=== PATIENT | female | born 1985 | race Caucasian/White ===

== ENCOUNTER → 2025-02-09 18:48 | Day surgery (SDC) | payer OTHER, SELFPAY ==
[2025-02-09] VITALS (8 sets, daily range): BP systolic 107–151; BP diastolic 56–92; PULSE 54–86; RESP 16–18; TEMP 36.7–36.8; O2SAT 97–100; BMI 26.2
--- NOTE | 2025-02-09 | PATH_ITS ---
[facility] Accession Number: [id number] No. of containers..01 Tissue . 01 Material submitted: . body - PELVIC HEMATOMA . 01 Diagnosis: PELVIC HEMATOMA: Blood clot with organizing thrombus and granulation type tissue. Rare giant cells present of undetermined significance. [facility] 02/16/2025 0916 Local . 01 Comment: This case is also reviewed by Dr. Tiffany Guerrero, who agrees with the interpretation. . 01 Electronically signed: . Cindy Lorenzo MD, Pathologist NPI- [id number] . 01 Gross description: . Received in formalin with two identifiers and pelvic hematoma, are multiple fragments of red-brown, presumed hemorrhagic material aggregating to 5.3 x 3.7 x 2.1 cm. No membranous or other soft tissue is grossly identified. [place] tissue is submitted in A1-A2. ([id number]) /MRV 02/10/2025 1440 Local . 01 Pathologist provided ICD-10: M79.81 . 01 CPT . 648529 Performed at: [address] [facility] [address], [place], [place] [id number] MD Chance Tolliver MD Phone: [phone]
--- NOTE | 2025-02-09 09:17 | PC.NURSE ---
bleeding after urination @0917 said it looked like Spotting.
--- NOTE | 2025-02-09 11:35 | ED.FEMALEGU ---
HPI - Female Genitourinary General Chief complaint: Urogenital-Female Stated complaint: Ovarian cysts and in pain Time Seen by Provider: 02/09/25 11:28 Source: patient Mode of arrival: Ambulatory History of Present Illness HPI Narrative: 39-year-old female presents to the ED with bilateral pelvic pain for the last 4 weeks. Patient underwent IVF, was diagnosed with a ectopic and underwent a bilateral salpingectomy on 01/13/2025. Patient states that since then, she has had bilateral pelvic pain. Pain is worse with movement and walking. Patient was seen at the [facility] ED on 02/05/[address] scan showed bilateral ovarian cysts, and a likely hematoma in the right adnexa. Patient was discharged home with pain medications. Patient was asked to finish her antibiotics that she was already taking. Patient asked to follow-up with OB. In the meanwhile, patient's pain has worsened. Patient also started having vaginal bleeding while in the ED. patient endorses chills. No chest pain, shortness of breath, fever, nausea, vomiting, lightheadedness, dizziness, syncope. Related Data Allergies Allergy/AdvReac Type Severity Reaction Status Date / Time vancomycin Allergy Intermediate Verified 02/09/25 13:52 latex Allergy Verified 02/09/25 09:24 Latex, Natural Rubber Allergy Verified 02/09/25 09:24 nitrile Allergy Verified 02/09/25 09:24 Review of Systems Constitutional Constitutional: Denies chills, Denies fatigue, Denies fever(s), Denies frequent falls, Denies lethargy and Denies weakness Eyes Eyes: Denies change in vision, Denies eye discharge, Denies irritation and Denies loss of vision ENT Ears, Nose, Mouth, and Throat: Denies change in voice, Denies dizziness, Denies neck pain, Denies sore throat and Denies throat swelling Cardiovascular Cardiovascular: Denies chest pain, Denies irregular heart rhythm, Denies lightheadedness, Denies palpitations, Denies dyspnea, Denies dyspnea on exertion and Denies orthopnea Respiratory Respiratory: Denies cough, Denies dyspnea, Denies dyspnea on exertion and Denies wheezing Gastrointestinal Gastrointestinal: Denies abdominal pain, Denies change in bowel habits, Denies diarrhea, Denies nausea and Denies vomiting Genitourinary Genitourinary: Reports abnormal vaginal bleeding and Reports pelvic pain Musculoskeletal Musculoskeletal: Denies neck pain and Denies numbness Integumentary/Breasts Skin/Breast: Denies pruritus, Denies erythema, Denies rash and Denies wounds Neurologic Neurologic: Denies behavioral changes, Denies confusion, Denies dizziness, Denies frequent falls, Denies loss of vision, Denies numbness and Denies weakness Psychiatric Psychiatric: Denies anxiety, Denies behavioral changes, Denies confusion, Denies depression, Denies homicidal ideation and Denies suicidal ideation Endocrine Endocrine: Denies fatigue, Denies flushing and Denies palpitations Hematologic/Lymphatic Hematologic/Lymphatic: Denies easy bruising Allergic/Immunologic Allergic/Immunologic: Denies urticaria, Denies throat swelling and Denies wheezing Exam Narrative Exam Narrative: Const General:?cooperative, healthy appearing and comfortable [facility] Head:?normal to inspection Ears:?hearing grossly normal bilaterally Nose:?external nose normal Face and sinus:?normal facial exam and sinuses nontender Mouth:?oral mucosae normal Throat:?posterior oropharynx normal Eyes General:?appearance normal, both eyes and all related structures Neck Neck:?normal visual inspection and no lymphadenopathy noted Resp Effort & Inspection:?normal respiratory effort Auscultation:?clear to auscultation bilaterally Cardio Rate:?regular rate Rhythm:?regular rhythm GI/ Pelvic tenderness bilaterally. Abdomen is soft, nondistended. exam deferred Neuro General:?patient alert, patient awake and patient oriented x3 Initial Vital Signs Initial Vital Signs: Vital Signs Temperature 98.3 F 02/09/25 09:03 Pulse Rate 54 L 02/09/25 09:03 Respiratory Rate 18 02/09/25 09:03 Blood Pressure 151/92 H 02/09/25 09:03 Pulse Oximetry 100 02/09/25 09:03 Oxygen Delivery Method Room Air 02/09/25 09:03 Course Orders Ordered: ED Orders 02/09/25 11:46 US pelvic complete Stat 02/09/25 12:00 CBC Auto Diff [Complete Blood Count AUTO DIFF] Stat CMP [Comprehensive Metabolic Panel] Stat HCG Quantitative /Beta subunit Stat Lactate (Lactic Acid) Stat Lipase Stat PT [Prothrombin Time INR] Stat PTT [PTT Partial Thromboplastin Toan] Stat 02/09/25 12:43 Blood Culture Stat 02/09/25 12:47 Urine Microscopic Stat 02/09/25 13:03 MR pelvis wo/w con Stat Lactated Ringer's (Lactated Ringers) 1,000 mls @ 42 mls/hr IV CONT NAREN Discontinued Medications Lorazepam (Lorazepam 1 Mg Tablet) 1 mg PO NOW ONE Stop: 02/09/25 14:01 Last Admin: 02/09/25 14:00 Dose: 1 mg Documented By: GABRIELLE Vital Signs Vital signs: Vital Signs - 8 hr 02/09/25 12:14 02/09/25 16:50 Pulse Rate 68 75 Respiratory Rate 16 16 Blood Pressure 119/56 L 107/66 Pulse Oximetry 100 99 Oxygen Delivery Method Room Air Room Air MDM - Female Genitourinary Lab Data 02/09/25 12:00 02/09/25 12:00 Labs: Lab Results 02/09/25 02/09/25 Range/Units 12:00 12:47 WBC 5.5 (4.5-11.0) X10^3/uL RBC 3.80 L (4.0-5.2) X10^6/uL Hgb 11.0 L (12.0-16.0) g/dL Hct 32.4 L (36-46) % MCV 85.5 (80-100) fL MCH 28.9 (26-34) PG MCHC 33.8 (30-36) % RDW 13.1 (11.6-14.8) % Plt Count 342 (150-400) X10^3/uL Neut % (Auto) 70.1 (50-75) % Lymph % (Auto) 21.4 L (25-40) % Valley % (Auto) 6.2 (3-14) % Eos % (Auto) 1.3 L (2-4) % Baso % (Auto) 1.0 (0-2) % Neut # (Auto) 3900 (1296-9295) /uL Lymph # (Auto) 1200 (7728-7368) /uL Valley # (Auto) 300 (0-900) /uL Eos # (Auto) 100 (0-450) /uL Baso # (Auto) 100 (0-100) /uL PT 11.1 (9.4-12.5) SECONDS INR 1.0 (0.9-1.3) APTT 29 (25.1-36.5) SECONDS Sodium 137 (137-145) mmol/L Potassium 4.1 (3.4-5.1) mmol/L Chloride 103 (98-107) mmol/L Carbon Dioxide 27 (22-32) mmol/L BUN 6 L (7-17) mg/dL Creatinine 0.64 (0.52-1.04) mg/dL Estimated GFR > 60 (>60) mL/min BUN/Creatinine Ratio 9.4 (6-22) Glucose 87 (70-99) mg/dL Lactate 1.1 (0.7-2.1) mmol/L Calcium 9.1 (8.4-10.2) mg/dL Total Bilirubin 0.4 (0.2-1.3) mg/dL AST 41 H (14-36) IU/L ALT 26 (<35) IU/L Alkaline Phosphatase 101 (38-126) U/L Total Protein 7.8 (6.3-8.2) g/dL Albumin 4.5 (3.5-5.0) g/dL Globulin 3.3 (1.7-4.1) g/dL Albumin/Globulin Ratio 1.4 (1.0-2.8) Lipase 64 (23-300) U/L HCG, Quant 12.95 mIU/mL Urine RBC 10-30/hpf H (0-5/HPF) Urine WBC None seen (0-5/HPF) Ur Squamous Epith Cells None seen (0-5/HPF) Urine Bacteria None seen (None) Ur Culture Indicated? Cult not indicated Vol Urine Centrifuged 10ml (spun) Urine Dip Bedside Urine Glucose Negative Bedside Urine Bilirubin - Negative Bedside Urine Ketone - Negative Urine Specific Glen 1.01 Bedside Urine Occult Blood +++ Bedside Urine pH 6.0 Bedside Urine Protein - Negative Bedside Urine Urobilinogen - Negative Bedside Urine Nitrite - Negative Bedside Urine Leukocytes - Negative Esterase MDM Narrative Medical decision making narrative: 39-year-old female presents to the ED with bilateral pelvic pain for the last 4 weeks. Concern for hematoma versus other postsurgical complications versus ruptured ovarian cyst versus torsion versus sepsis versus other. Will obtain labs, UA, ultrasound pelvis. Patient NPO. Ultrasound shows no sonographic signs of ovarian torsion. Left ovarian septated cyst measuring 4.5 cm and simple cyst measuring 3.9 cm. Complex oval lesion in the right adnexa without internal vascularity measuring 5.6 cm is of uncertain etiology. Pelvic MRI recommended for further characterization. Labs within normal limits. UA without UTI. Pelvic MRI has been ordered. Pelvic MRI FINDINGS: IMPRESSION: Right adnexal lesion along the broad ligament measuring 4.0 x 3.2 cm. This contains T1 and mixed T2 signals, consistent with hemorrhagic products. Additional 2 foci of hemorrhagic products within the deep pelvis. Findings are likely a sequela of recent surgery, with small hematomas being at the top of the differential. Differential does include endometriomas. Ectopic is significantly less likely. Correlate with beta HCG. Right ovarian cyst with a thin internal septation measuring 6.8 x 4.5 cm. No evidence of ovarian torsion. OBGYN Dr. Maine Coley was consulted. She graciously agrees to take the patient to the OR for exploration. Discussed findings and disposition with patient. She is agreeable to the plan. Patient is admitted to surgery. Medical records reviewed: Yes Discharge Plan Departure Patient Disposition: Admitted to Surgery Clinical Impression: Adnexal mass
--- NOTE | 2025-02-09 11:46 | DI.US.S_ITS ---
PROCEDURE: US PELVIC COMPLETE INDICATIONS: pelvic pain, s/p bilateral salpingectomy, ectopic TECHNIQUE: Real-time scanning was performed of the pelvic organs, with image documentation. Additional endovaginal scanning was necessary due to incomplete visualization of the adnexal and endometrial structures by transabdominal scanning. Color and spectral Doppler evaluation of the ovaries was performed in the setting of pelvic pain. COMPARISON: None. FINDINGS: Uterus: Uterus is retroverted and normal in size at 5.8 x 3.9 x 5.5 cm. The myometrium is homogeneous. The endometrium measures 2.3 mm combined thickness. Ovaries: The right ovary measures 7.4 x 4.8 x 6.0 cm, with a calculated ovarian volume of 111 cc. The left ovary measures 3.0 x 4.9 x 1.7 cm, with a calculated ovarian volume of 12.9 cc. Septated cyst in the left ovary measures 3.7 x 4.5 x 3.8 cm. Additional 3.9 cm simple cyst is seen at the left ovary. A right ovarian simple cyst measures up to 1.9 cm. A complex hypoechoic avascular lesion is seen in the right adnexa measuring 5.6 x 3.1 x 4.5 cm. Normal arterial and venous Doppler flow are seen to each ovary. Other: No pathologic free abdominal or pelvic fluid. IMPRESSION: 1. No sonographic signs of ovarian torsion. 2. Left ovarian septated cyst measuring 4.5 cm and simple cyst measuring 3.9 cm. 3. Complex oval lesion in the right adnexa without internal vascularity measuring 5.6 cm is of uncertain etiology. Pelvic MRI could be performed for further characterization versus follow-up ultrasound. Approved by: Mustapha Ayala M.D. on 02/09/2025 at 12:58
[2025-02-09 12:11] LABS: Add Manual Diff / Slide Review NO; Hematocrit 32.4 % (36-46); Hemoglobin 11.0 g/dL (12.0-16.0); Lymphocytes Absolute Auto 1200 /uL (1100-4500); Mean Corpuscular HGB Conc 33.8 % (30-36); Mean Corpuscular Hemoglobin 28.9 PG (26-34); Mean Corpuscular Volume 85.5 fL (80-100); Platelet Count 342 X10^3/uL (150-400)
[2025-02-09 12:18] LABS: INR 1.0 (0.9-1.3); Prothrombin Time 11.1 SECONDS (9.4-12.5)
[2025-02-09 12:21] LABS: PTT Partial Thromboplastin Tim 29 SECONDS (25.1-36.5)
[2025-02-09 12:27] LABS: Alanine Aminotransferase 26 IU/L (<35); Albumin 4.5 g/dL (3.5-5.0); Albumin Globulin Ratio 1.4 (1.0-2.8); Alkaline Phosphatase 101 U/L (38-126); Blood Urea Nitrogen 6 mg/dL (7-17); Calcium 9.1 mg/dL (8.4-10.2); Carbon Dioxide 27 mmol/L (22-32); Chloride 103 mmol/L (98-107); Estimated Glomerular Filt Rate > 60 mL/min (>60); Globulin 3.3 g/dL (1.7-4.1); Glucose 87 mg/dL (70-99); HEMOLYSIS < 15 (0-50); Lactate (Lactic Acid) 1.1 mmol/L (0.7-2.1); Lipase 64 U/L (23-300); Potassium 4.1 mmol/L (3.4-5.1); Sodium 137 mmol/L (137-145); Total Protein 7.8 g/dL (6.3-8.2)
--- NOTE | 2025-02-09 13:03 | DI.MRI.S_ITS ---
PROCEDURE: MR PELVIS WO/W CON INDICATIONS: complex lesion in R adnexa TECHNIQUE: Coronal HASTE, sagittal breath-hold T2 FSE; axial T1 FSE with and without fat saturation through the pelvis. Optional long- and short-axis uterine nonbreath-hold T2 FSE through the uterus. Sagittal or axial dynamic VIBE during administration of contrast. Post-contrast axial or coronal VIBE/2-D FLASH with fat saturation from the iliac crests to the symphysis. Optional diffusion weighted imaging and ADC may be performed. COMPARISON: , , US PELVIC COMPLETE, 02/09/2025, 11:55. FINDINGS: Image quality: Excellent. Uterus: Uterus is normal in size. This is anteverted retroflexed. Endometrium is normal in thickness. Junctional zone is normal in thickness at 12 mm or less. Adnexa: There is a right ovarian cyst with a thin internal septation measuring approximately 6.8 x 4.5 cm. The ovarian stroma along the right periphery is non edematous. The left ovary has a normal size and appearance, with multiple peripheral follicles. This measures approximately 1.7 x 2.6 cm. Along the right broad ligament, there is a T1 hyperintense lesion with mild intermediate T2 signal along the periphery, and internal T2 hyperintense signal. This measures 4.0 x 3.2 cm. Additionally, in the deep pelvis, there are a couple of T1 hyperintense lesions measuring 1.9 x 1.9 cm and 0.2 x 0.9 cm (series 7, image 21). Urinary system: Bladder wall is normal in thickness. Distal ureters are non distended. Urethra appears normal in morphology. Nodes and vessels: No pelvic or inguinal adenopathy by size criteria. Iliac vessels are normal in size. Bowel and peritoneum: No pathologic free pelvic fluid. Inferior colon and small bowel loops are normal in caliber. Soft tissues: No inguinal hernias. No findings of pelvic floor incompetence in the absence of provocation. Bones: Marrow demonstrates normal overall signal. IMPRESSION: Right adnexal lesion along the broad ligament measuring 4.0 x 3.2 cm. This contains T1 and mixed T2 signals, consistent with hemorrhagic products. Additional 2 foci of hemorrhagic products within the deep pelvis. Findings are likely a sequela of recent surgery, with small hematomas being at the top of the differential. Differential does include endometriomas. Ectopic is significantly less likely. Correlate with beta HCG. Right ovarian cyst with a thin internal septation measuring 6.8 x 4.5 cm. No evidence of ovarian torsion. Dictated by: Billy Soto M.D. on 02/09/2025 at 15:26 Approved by: Billy Soto M.D. on 02/09/2025 at 15:36
[2025-02-09 13:23] LABS: Culture Indicated Urine Cult Not Indicated
[2025-02-09 14:17] LABS: HCG Quantitative /Beta subunit 12.95 mIU/mL
[2025-02-09] MEDS: LACTATED RINGERS 1,000 ML 42 ML IV (17:30)
--- NOTE | 2025-02-09 17:36 | P.HPOB_ITS ---
History of Present Illness History of Present Illness Reason for admission: pelvic pain Narrative: Bing Monroy is a 39 year old female 1 month s/p laparoscopic bilateral salpingectomy for tubal ectopic . She presented to the ER today for continued pain and feeling more fatigue. She has had off and on nausea and vomiting, and has generally been feeling worse over the last few weeks. She originally had surgery at [facility] on 01/13, then felt better in the week after, but then felt worse again. She has had multiple imaging studies that have showed adenexal cysts and possible pelvic hematoma. [facility] Medical History (Updated 02/09/25 @ 17:43 by Maine Coley DO) History of ectopic Surgical History (Updated 02/09/25 @ 17:41 by Maine Coley DO) H/O section History of bilateral salpingectomy (~12/2024) Social History Smoking Status: Never smoker Meds Home Medications and Allergies Allergies Allergy/AdvReac Type Severity Reaction Status Date / Time vancomycin Allergy Intermediate Verified 02/09/25 13:52 latex Allergy Verified 02/09/25 09:24 Latex, Natural Rubber Allergy Verified 02/09/25 09:24 nitrile Allergy Verified 02/09/25 09:24 Review of Systems Review of Systems ROS: Yes All systems reviewed with the patient and are negative except as otherwise documented Exam Vital Signs (past 8 hours): - 02/09/25 12:14 02/09/25 16:50 Pulse Rate 68 75 Respiratory Rate 16 16 Blood Pressure 119/56 L 107/66 Pulse Oximetry 100 99 Oxygen Delivery Method Room Air Room Air Oxygen Delivery Method Room Air Const General: healthy appearing, comfortable and No acute distress Resp Effort & Inspection: normal respiratory effort and able to speak in complete sentences GI Other: tender to palpation diffusely Skin Other: 3 laparoscopic incisions healing well Neuro Cognition: normal cognition Speech: speech normal Psych Mood: congruent mood Affect: normal affect Objective Imaging US - abdomen: Radiologist's impression: FINDINGS: Uterus: Uterus is retroverted and normal in size at 5.8 x 3.9 x 5.5 cm. The myometrium is homogeneous. The endometrium measures 2.3 mm combined thickness. Ovaries: The right ovary measures 7.4 x 4.8 x 6.0 cm, with a calculated ovarian volume of 111 cc. The left ovary measures 3.0 x 4.9 x 1.7 cm, with a calculated ovarian volume of 12.9 cc. Septated cyst in the left ovary measures 3.7 x 4.5 x 3.8 cm. Additional 3.9 cm simple cyst is seen at the left ovary. A right ovarian simple cyst measures up to 1.9 cm. A complex hypoechoic avascular lesion is seen in the right adnexa measuring 5.6 x 3.1 x 4.5 cm. Normal arterial and venous Doppler flow are seen to each ovary. Other: No pathologic free abdominal or pelvic fluid. IMPRESSION: 1. No sonographic signs of ovarian torsion. 2. Left ovarian septated cyst measuring 4.5 cm and simple cyst measuring 3.9 cm. 3. Complex oval lesion in the right adnexa without internal vascularity measuring 5.6 cm is of uncertain etiology. Pelvic MRI could be performed for further characterization versus follow-up ultrasound. Approved by: Mustapha Ayala M.D. on 02/09/2025 at 12:58 MRI - abdomen: Radiologist's impression: IMPRESSION: Right adnexal lesion along the broad ligament measuring 4.0 x 3.2 cm. This contains T1 and mixed T2 signals, consistent with hemorrhagic products. Additional 2 foci of hemorrhagic products within the deep pelvis. Findings are likely a sequela of recent surgery, with small hematomas being at the top of the differential. Differential does include endometriomas. Ectopic is significantly less likely. Correlate with beta HCG. Right ovarian cyst with a thin internal septation measuring 6.8 x 4.5 cm. No evidence of ovarian torsion. Dictated by: Billy Soto M.D. on 02/09/2025 at 15:26 Approved by: Billy Soto M.D. on 02/09/2025 at 15:36 Labs 02/09/25 12:00 02/09/25 12:00 Labs: Laboratory Results - last 24 hr 02/09/25 02/09/25 12:00 12:47 WBC 5.5 RBC 3.80 L Hgb 11.0 L Hct 32.4 L MCV 85.5 MCH 28.9 MCHC 33.8 RDW 13.1 Plt Count 342 Neut % (Auto) 70.1 Lymph % (Auto) 21.4 L [place] % (Auto) 6.2 Eos % (Auto) 1.3 L Baso % (Auto) 1.0 Neut # (Auto) 3900 Lymph # (Auto) 1200 [place] # (Auto) 300 Eos # (Auto) 100 Baso # (Auto) 100 PT 11.1 INR 1.0 APTT 29 Sodium 137 Potassium 4.1 Chloride 103 Carbon Dioxide 27 BUN 6 L Creatinine 0.64 Estimated GFR > 60 BUN/Creatinine Ratio 9.4 Glucose 87 Lactate 1.1 Calcium 9.1 Total Bilirubin 0.4 AST 41 H ALT 26 Alkaline Phosphatase 101 Total Protein 7.8 Albumin 4.5 Globulin 3.3 Albumin/Globulin Ratio 1.4 Lipase 64 HCG, Quant 12.95 Urine RBC 10-30/hpf H Urine WBC None seen Ur Squamous Epith Cells None seen Urine Bacteria None seen Ur Culture Indicated? Cult not indicated Vol Urine Centrifuged 10ml (spun) Assessment & Plan Assessment and plan (1) Adnexal mass: Status: Acute (2) History of ectopic : Status: Acute Assessment & Plan narrative: 39yo F with h/o laparoscopic bilateral salpingectomy 1 month ago, with persistent pain and imaging findings suggestive of pelvic hematoma and adnexal cysts. She was counseled regarding conservative management vs. surgical management, and given that her symptoms have continued to worsen, she desires to proceed with surgical management at this time. -plan for diagnostic laparoscopy with hematoma evacuation, possible ovarian cystectomy, possible oophorectomy -plan for same day procedure Surgery consent We discussed the risks/benefits/alternatives to the proposed procedure, to include but not limited to: -risk of bleeding, requiring medications, blood products, or other procedures as indicated -risk of infection, requiring prolonged hospital stay or other procedures -risk of injury to other structures, including bowel, bladder, blood vessels, nerves, etc. which may also require additional procedures -risk of adverse reaction to anesthesia or medications -risk of venous thromboembolism and associated sequelae -risk of rare complications such as cardiac arrest, or extremely rarely, Patient is aware of the risks, and desires to proceed with planned surgical procedure. Time-Based Coding :: [45min] spent with patient and on the chart (including review of chart, obtaining history, exam, reviewing outside data, placing orders, documenting exam and treatment plan, and counseling patient) on [02/09/25].
[2025-02-09] MEDS: BUPIVACAINE 0.25% (PF) VIAL 30 ML INJ (18:13)
--- NOTE | 2025-02-09 18:23 | SUR.OPER ---
Lithotomy on padded OR bed. Metz Pad Positioner under torso. Head on pillow, arms padded and tucked at sides. Legs secured in padded yellow fins stirrups.
--- NOTE | 2025-02-09 19:19 | P.OP_ITS ---
Operative Date/Time/Diagnoses Date of procedure: 02/09/25 Time of procedure: 18:00 Pre-op diagnosis: 1. Pelvic pain 2. Adnexal cyst 3. Pelvic hematoma Post-op diagnosis: same Procedure & Clinicians Procedure: Diagnostic laparoscopy Lysis of adhesions Pelvic hematoma evacuation Same procedure(s) as scheduled: Yes Indications: 39yo F presented to the ER with persistent pain, fatigue, and nausea approximately one month postop from laparoscopic bilateral salpingectomy for ectopic . Imaging findings showed enlarged ovarian cyst as well as pelvic hematomas, thus after counseling regarding conservative management with continued observation versus proceeding with surgical management, patient desired to proceed with surgical management. Surgeon: Maine oCley Click Yes if Unassisted: Yes Anesthesia Type: General Operative Notes Findings: Omental adhesions noted to the right pelvic sidewall near the right ovary. 4- 5cm hematoma noted in the pre-peritoneal space of the right pelvic sidewall in the same location as the omental adhesions. 3-4cm pelvic hematoma noted in the posterior cul-de-sac. Uterine adhesions noted to the anterior abdominal wall. Normal appearing bilateral ovaries with several simple cysts on the right ovary that were drained. Specimen(s): other (pelvic hematoma) Applied: none Estimated Blood Loss (mL): 10 Blood products transfused: none Procedure in detail: The risks, benefits, indications and alternatives of the procedure were reviewed with the patient and informed consent was obtained. The pt was taken to the operating room where general anesthesia was obtained without difficulty. The pt was then placed in the low lithotomy position using gel-padded Dre Stirrups. Bilateral SCDs were placed for VTE prophylaxis. Prophylactic antibiotics not indicated. Pt was then prepped and draped in the usual sterile fashion. A 5mm skin incision was made in the inferior aspect of the umbilicus after injection of 0.25% marcaine. A 5mm trocar and sleeve were then carefully introduced into the peritoneal cavity under direct visualization at a 90-degree angle while tenting up the abdominal wall. Intra-peritoneal placement was confirmed under direct visualization with the laparoscope with entry pressure <5mmHg. A pneumoperitoneum was obtained with several liters of CO2 gas, maximum pressure of 15mmHg. Upon entry into the peritoneal cavity, structures immediately below the incision were inspected and found to be free of injury. Two additional 5mm trocars were placed in the left lateral aspect of the abdominal wall under direct laparoscopic visualization after injection of 0.25% marcaine at each site. A survey of the pt?s abdomen and pelvis was notable for the above findings. Using an atraumatic grasper and the Powerseal, the omental adhesions were taken down from the right adnexa. There appeared to be a pre- peritoneal hematoma adjacent to the right adnexa, which was opened and evacuated. The area was irrigated and suctioned, and appeared to be hemostatic. Upon further evaluation of the pelvis, there also appeared to be a pelvic blood collection at the base of the posterior cul-de-sac, which was gently from the peritoneum. The larger clots and tissue from both the adnexal hematoma and the posterior cul-de-sac were set aside to be removed later. Attention was then directed to the right ovary, which appeared to have a 3-4cm simple cyst, which was incised and drained. The left ovary appeared normal. The uterine adhesions to the abdominal wall were left alone. The lower left port was then switched to a 12mm port. An endocatch bag was then inserted, and the tissue/hematoma specimens were inserted into the bag, and removed from the abdomen. The abdomen was then reevaluated. The right adnexal/pre-peritoneal hematoma was inspected, and was felt to not be involving fascia or requiring any other intervention. It was slightly oozy, thus Floseal was then applied to this area. The other pelvic structures were noted to be hemostatic. The 12mm port site fascia was closed with an 0-vicryl with a Ronny-Thomasen device. The gas was then turned off and all CO2 was removed from the pt?s abdomen. The trocars were removed. The skin incision sites were reapproximated using 4-0 monocryl and dermabond. All instruments were confirmed removed from the vagina. At the completion of the case the sponge and needle counts were correct x 2. The patient tolerated the procedure well and was taken to the PACU in stable condition. Complications: none Post-operative Condition: stable Disposition: same day surgery Plan for aftercare: Discharge to home once recovered from anesthesia.
[2025-02-09] MEDS: ACETAMINOPHEN IV 1,000 MG/100 ML VIAL 400 MG IV (19:54)
[2025-02-09] MEDS: ONDANSETRON 4 MG/2 ML INJ IV (19:56)
== END | disposition home or self-care (01) ==
LOC: ED 18:20 → OR 18:49
PROVIDERS: Student in an Organized Health Care Education/Training Program; Visit Provider Student in an Organized Health Care Education/Training Program
PROC: (CPT 49320; principal; 2025-02-09 18:00)
DX: N99.840 Postprocedural hematoma of a genitourinary system organ or structure following a genitourinary system procedure (principal); Z87.59 Personal history of other complications of pregnancy, childbirth and the puerperium; N73.6 Female pelvic peritoneal adhesions (postinfective); N83.291 Other ovarian cyst, right side
CPT/HCPCS: 49322; 36415; 72197; 76830; 76856; 80053; 81003; 81015; 83605; 83690; 84702; 85025; 85610; 85730; 87040; 93975; 99284; A9579; J0131; J0330; J1100; J2250; J2405; J2704; J3010; J3490